=== PATIENT | male | born 1955 | race Caucasian/White ===

== ENCOUNTER 2023-10-26 01:45 | Emergency (ER) | payer OTHER ==
--- OUTSIDE RECORDS SUMMARY | 2023-10-26 01:48 | XMS REPORT | Continuity of Care Document ---
Author Name Unknown Address [address] [place] [address] [facility] thconnect Address [address] [place] [address] Care Team Providers Care Skein Dyer Name Role Phone Marlin Moore Attending Clinician Unavailable Marlin Moore Admitting Clinician Unavailable Payers Payer Name Policy Type Policy Number Effective Date Expirati on Date Source Allergies, Adverse Reactions, Alerts Allergy Name Allergy Type Status Severity Reaction(s) Onset Date Inactive Date Treating Clinician Comments Source No Known Drug Allergie s DA Active U 2020-03 0- 00:00: 00 [facility] No Known Drug Allergie s DA Active U [facility] 2020-03 0 00:00: 00 [facility] Encounters Start Date/Time End Date/Time Encounter Type Admission Type Attending Clinicians Care Facility Care Department Encounter ID Source 2020-12-10 09:00:00 2020-12-10 08:57:00 Inpatient EL Marlin Moore [facility]INF [id number] [facility]
[2023-10-26 02:43] LABS: Absolute Eosinophils 0.1 K/uL (0-0.5); Absolute Lymphocytes (CBC) 1.5 K/uL (0.7-4.9); Absolute Neutrophil 10.6 K/uL (1.8-8.0); Basophils % 0.3 % (0-1.3); Eosinophils % 0.7 % (0-4.4); Hematocrit 45.2 % (39.6-49.0); Hemoglobin 15.2 g/dL (13.6-17.9); Lymphocytes % 11.5 % (15.3-44.8); MCH 31.2 pg (27.0-35.0); MCHC 33.8 g/dL (32.0-36.0); MCV 92.4 fL (80-100); Monocytes % 7.6 % (3.3-12.3); Neutrophils % 79.9 % (41.7-73.7); Platelets 278 thou/uL (152-406); RBC Red Blood Cell Count 4.89 M/uL (4.33-5.43); Red Cell Distribution Width 14.1 % (12.1-15.2)
[2023-10-26 02:56] LABS: Albumin 3.7 g/dL (3.4-5.0); Albumin/Globulin Ratio 1.1 (1.1-1.8); Anion Gap 7.2 mEq/L (5.0-15.0); Bilirubin Total 0.6 mg/dL (0.2-1.0); Globulin 3.3 g/dL (2.3-3.5); Potassium 3.2 mEq/L (3.5-5.1)
[2023-10-26 04:20] LABS: Specific Gravity 1.019 (1.005-1.030); Sqamous Epithelial None Seen /HPF (None Seen); Urine Bacteria None Seen /HPF (<20); Urine Bilirubin NEGATIVE (Negative); Urine Blood Negative (Negative); Urine Clarity Extremely Turbid (Clear); Urine Color Yellow (Yellow); Urine Culture Reflex Order NOT NEEDED; Urine Glucose NEGATIVE (Negative); Urine Ketones 1+ (Negative); Urine Microscopic Reflex YN ORDER UMIC; Urine Nitrite NEGATIVE (Negative); Urine Protein TRACE (Negative); Urine RBC None Seen /HPF (None Seen); Urine Urobilinogen Normal (Normal); Urine WBC None Seen /HPF (<5); Urine pH 8.5 (5.0-7.0)
--- NOTE | 2023-10-26 05:21 | EDPHYS ---
Physician Documentation [facility] Name: Bacilio Elise Age: 67 yrs Sex: Male : 1955 Arrival Date: 10/26/2023 Time: 01:45 Bed 7 Private MD: ED Physician Gaston Canales HPI: 10/25 04:00 This 67 yrs old Male presents to ER via Ambulatory with complaints of Abdominal Pain. rt 04:00 Patient presents to the ED with a left lower quadrant pain starting at 10 at night. rt Started all of a sudden. Had nausea without vomiting. Patient states that the symptoms were constant. Only improved after getting to the ED, states that symptoms are mild currently. Denies other acute complaints at this time, symptoms are moderate in severity, no other aggravating or elevating factors. Historical: - Allergies: :56 Morphine; ss 01:56 Aleve; ss - PMHx: :56 Glaucoma; L eye; ss - Immunization history:: Client reports having NOT received the Covid vaccine. - Infectious Disease History:: Denies. - Social history:: Smoking status: Patient reports use of chewing tobacco. - Family history:: not pertinent. ROS: 04:00 Constitutional: Negative for fever, chills, and weight loss, Cardiovascular: Negative rt for chest pain, palpitations, and edema, Respiratory: Negative for shortness of breath, cough, wheezing, and pleuritic chest pain, MS/Extremity: Negative for injury and deformity, Skin: Negative for injury, rash, and discoloration, Neuro: Negative for headache, weakness, numbness, tingling, and seizure, 04:00 Abdomen/GI: Positive for abdominal pain, nausea, Exam: 04:00 Constitutional: This is a well developed, well nourished patient who is awake, alert, rt and in no acute distress. Chest/axilla: Normal chest wall appearance and motion. Nontender with no deformity. No lesions are appreciated. Cardiovascular: Regular rate and rhythm with a normal S1 and S2. No gallops, murmurs, or rubs. Normal PMI, no JVD. No pulse deficits. Respiratory: Lungs have equal breath sounds bilaterally, clear to auscultation and percussion. No rales, rhonchi or wheezes noted. No increased work of breathing, no retractions or nasal flaring. Skin: Warm, dry with normal turgor. Normal color with no rashes, no lesions, and no evidence of cellulitis. MS/ Extremity: Pulses equal, no cyanosis. Neurovascular intact. Full, normal range of motion. Neuro: Awake and alert, GCS 15, oriented to person, place, time, and situation. Cranial nerves II-XII grossly intact. Motor strength 5/5 in all extremities. Sensory grossly intact. Cerebellar exam normal. Normal gait. 04:00 Abdomen/GI: Mild tenderness to the left lower quadrant without rebound, guarding, distention, no CVAT, Vital Signs: 01:53 BP 157 / 99; Pulse 68; Resp 16; Temp 98.5(TE); Pulse Ox 99% on R/A; Weight 72.57 kg; ss Height 5 ft. 9 in. ; Pain 5/10; 04:15 BP 161 / 79; Pulse 60; Resp 17; Pulse Ox 95% ; pc2 05:30 BP 152 / 77; Pulse 59; Resp 16; Pulse Ox 95% on R/A; pc2 01:53 Body Mass Index 23.63 (72.57 kg, 175.26 cm) ss 01:53 Pain Scale: Adult ss MDM: 01:58 Patient medically screened. rt 05:47 Differential Diagnosis Kidney stone, diverticulitis, bowel obstruction, enteritis. Data rt reviewed: vital signs, nurses notes, lab test result(s), radiologic studies. Consideration of Admission/Observation Escalation of care including admission/observation considered. Had a long discussion with the patient regarding diagnostic findings, specifically leukocytosis as well as radiographic findings of enteritis versus partial small bowel obstruction. I explained these in detail to the patient. I did offer patient admission to the hospital for observation for possible bowel obstruction. Patient states that his symptoms have completely resolved in the emergency department, states that he wishes to go home. Will treat for enteritis, however, patient was given strict return precautions to return for any worsening symptoms.. Independent interpretation of the following test(s) in the Emergency Department CT Scan: My interpretation is Dilated small bowel loops seen on interpretation of CT scan images. Test considered but Not performed: Ultrasound Low suspicion for gallbladder pathology, ultrasound is not indicated. Counseling: I had a detailed discussion with the patient and/or guardian regarding the historical points, exam findings, and any diagnostic results supporting the discharge/admit diagnosis, lab results, radiology results, the need for outpatient follow up, to return to the emergency department if symptoms worsen or persist or if there are any questions or concerns that arise at home. Response to treatment: the patient's symptoms have resolved after treatment. 10/25 02:10 Order name: CBC with Diff; Complete Time: 03:42 rt 10/25 02:10 Order name: CMP; Complete Time: 03:42 rt 10/25 02:10 Order name: Lipase; Complete Time: 03:42 rt 10/25 02:10 Order name: Urinalysis w/ reflexes; Complete Time: 04:22 rt 10/25 02:10 Order name: CT Abd/Pelvis - IV Contrast Only rt 10/25 02:10 Order name: IV Saline Lock; Complete Time: 02:24 rt 10/25 02:10 Order name: Labs collected and sent; Complete Time: 02:24 rt Administered Medications: No medications were administered Disposition Summary: 10/26/23 05:21 Discharge Ordered Notes: Location: Home rt Problem: new rt Symptoms: are resolved rt Condition: Stable rt Diagnosis - Other viral enteritis rt Followup: rt - With: Private Physician - When: 2 - 3 days - Reason: Followup: rt - With: Emergency Department - When: As needed - Reason: Worsening of condition Discharge Instructions: - Discharge Summary Sheet rt - Bowel Obstruction rt - Viral Gastroenteritis, Adult rt Forms: - Medication Reconciliation Form rt - Antibiotic Education rt - Prescription Opioid Use rt - Patient Portal Instructions rt - Leadership Thank You Letter rt Prescriptions: - ondansetron 4 mg Oral Tablet,disintegrating - take 1 tablet ORAL route every 6 hours as needed for nausea; 18 tablet; rt Refills: 0, Product Selection Permitted - dicyclomine 10 mg Oral capsule - take 1 capsule ORAL route 3 times per day as needed for pain; 18 capsule; rt Refills: 0, Product Selection Permitted Signatures: Dispatcher [employer] Destini Slade RN RN Gaston Segovia MD MD rt
--- NOTE | 2023-10-26 05:21 | ER ---
Nurse's Notes [facility] Name: Bacilio Elise Age: 67 yrs Sex: Male : 1955 Arrival Date: 10/26/2023 Time: 01:45 Bed 7 Private MD: Diagnosis: Other viral enteritis Presentation: 10/25 01:53 Chief complaint: Chief complaint: Patient states: L sided abd pain that began at 2100 ss yesterday evening that has been getting worse since then. Coronavirus screen: Client denies travel out of the [place] in the last 14 days. Ebola Screen: Patient denies exposure to infectious person. Patient denies travel to an Ebola-affected area in the 21 days before illness onset. Initial Sepsis Screen: Does the patient meet any 2 criteria? No. Patient's initial sepsis screen is negative. Does the patient have a suspected source of infection? No. Patient's initial sepsis screen is negative. Risk Assessment: Do you want to hurt yourself or someone else? Patient reports no desire to harm self or others. Onset of symptoms was October 25, 2023. 01:53 Method Of Arrival: Ambulatory ss 01:53 Acuity: SEVEN 3 ss Triage Assessment: 02:06 General: Appears in no apparent distress. comfortable, Behavior is calm, cooperative, pc2 appropriate for age. Pain: Complains of pain in abdomen. EENT: No signs and/or symptoms were reported regarding the EENT system. Neuro: Level of Consciousness is awake, alert, obeys commands, Oriented to person, place, time, situation. Cardiovascular: Patient's skin is warm and dry. Respiratory: Airway is patent Respiratory effort is even, unlabored, Respiratory pattern is regular, symmetrical. GI: Abdomen is non-distended. : No signs and/or symptoms were reported regarding the genitourinary system. Derm: No signs and/or symptoms reported regarding the dermatologic system. Musculoskeletal: No signs and/or symptoms reported regarding the musculoskeletal system. Historical: - Allergies: 01:56 Morphine; ss 01:56 Aleve; ss - PMHx: :56 Glaucoma; L eye; ss - Immunization history:: Client reports having NOT received the Covid vaccine. - Infectious Disease History:: Denies. - Social history:: Smoking status: Patient reports use of chewing tobacco. - Family history:: not pertinent. Screenin:05 [facility] ED Fall Risk Assessment (Adult) History of falling in the last 3 months, pc2 including since admission No falls in past 3 months (0 pts) Confusion or Disorientation No (0 pts) Intoxicated or Sedated No (0 pts) Impaired Gait No (0 pts) Mobility Assist Device Used No (0 pt) Altered Elimination No (0 pt) Score/Fall Risk Level 0 - 2 = Low Risk Oriented to surroundings, Maintained a safe environment, Hourly rounding (assess needs \T\ fall precautionary measures) done. Abuse screen: Denies threats or abuse. Denies injuries from another. Nutritional screening: No deficits noted. Tuberculosis screening: No symptoms or risk factors identified. Assessment: 02:07 GI: Bowel sounds present X 4 quads. Abd is soft and non tender X 4 quads. pc2 03:30 Reassessment: Patient appears in no apparent distress at this time. Patient and/or pc2 family updated on plan of care and expected duration. Pain level reassessed. Patient states symptoms have improved. Vital Signs: 01:53 BP 157 / 99; Pulse 68; Resp 16; Temp 98.5(TE); Pulse Ox 99% on R/A; Weight 72.57 kg; ss Height 5 ft. 9 in. ; Pain 5/10; 04:15 BP 161 / 79; Pulse 60; Resp 17; Pulse Ox 95% ; pc2 05:30 BP 152 / 77; Pulse 59; Resp 16; Pulse Ox 95% on R/A; pc2 01:53 Body Mass Index 23.63 (72.57 kg, 175.26 cm) ss 01:53 Pain Scale: Adult ss ED Course: 01:49 Patient arrived in ED. gm2 01:50 Gaston Canales MD is Attending Physician. rt 01:56 Triage completed. ss 01:56 Arm band placed on right wrist. ss 02:05 Savanna Marquez, RN is Primary Nurse. pc2 02:05 No provider procedures requiring assistance completed. pc2 02:06 Patient has correct armband on for positive identification. Bed in low position. Call pc2 light in reach. Side rails up X 1. Provided Education on: POC and time frame. 02:15 Inserted saline lock: 20 gauge in right antecubital area, using aseptic technique. pc2 Blood collected. Flushed with 10 mL NS. 02:24 CBC with Diff Sent. pc2 02:24 CMP Sent. pc2 02:24 Lipase Sent. pc2 03:35 Urine collected: straight cath specimen, clear. pc2 03:37 Urinalysis w/ reflexes Sent. pc2 04:[address] pc2 04:33 CT Abd/Pelvis - IV Contrast Only In Process Unspecified. EDMS 06:00 IV discontinued, intact, bleeding controlled, No redness/swelling at site. Pressure pc2 dressing applied. Administered Medications: No medications were administered Medication: 02:06 VIS not applicable for this client. pc2 Outcome: 05:21 Discharge ordered by . rt 05:59 Discharged to home ambulatory, with family, pc2 05:59 Condition: stable 05:59 Discharge instructions given to patient, family, Instructed on discharge instructions, follow up and referral plans. medication usage, Demonstrated understanding of instructions, follow-up care, medications, Prescriptions given X 2, 06:03 Patient left the ED. pc2 Signatures: Dispatcher [employer] EDMS Destini Mcallister, JU RN ss Gaston Canales MD MD rt Neda Busby 2 Savanna Marquez, RN RN pc2
[2023-10-26 06:17] VITALS: TEMP 98.5
[2023-10-26 06:20] VITALS: O2SAT 95
[2023-10-26 06:21] VITALS: BP 152/77
--- NOTE | 2023-10-27 08:48 | RAD REPORT ---
EXAM DESCRIPTION: CT - Abdomen Pelvis W Contrast - 10/26/2023 6:52 am CLINICAL HISTORY: Abdominal pain. COMPARISON: None. TECHNIQUE: CT ABDOMEN PELVIS WITH IV CONTRAST on 10/26/2023 2:10 AM CDT This exam was performed according to our departmental dose-optimization program, which includes autom ated exposure control, adjustment of the mA and/or kV according to patient size and/or use of iterati ve reconstruction technique. FINDINGS: Lower lungs are clear. Abdomen: The liver is normal in appearance. There is no biliary dilatation. There is a small to moder ate hiatal hernia. Gallbladder is normal in appearance. The pancreas and spleen are normal in appeara nce. The adrenal glands and kidneys are unremarkable. Abdominal aorta is mildly calcified without aneurysm. There is no free air. There is no retroperitone al adenopathy. Pelvis: There is large amount of stool throughout the colon. There is fluid throughout multiple upper and central small bowel loops with relatively decompressed small bowel. Urinary bladder is unremarka ble. There is no free fluid. Appendix is normal. Skeleton: There are no acute osseous findings. No suspicious bony lesions. IMPRESSION: Proximal small bowel enteritis versus developing or partial small bowel obstruction. Electronically signed by: Grover Dent MD 10/26/2023 04:51 AM CDT RP Due to temporary technical issues with the PACS/Fluency reporting system, reports are being signed by the in house radiologist without review as a courtesy to ensure prompt reporting. The interpreting r adiologist is fully responsible for the content of the report.
== END 2023-10-26 06:03 | disposition home or self-care (01) ==
LOC: ER 01:45
DX: A08.39 Other viral enteritis (principal); F17.220 Nicotine dependence, chewing tobacco, uncomplicated
CPT/HCPCS: 85025; 81001; 36415; 83690; 80053; 74177; Q9967; 99284